=== PATIENT | female | born 1980 | race Caucasian/White ===

== ENCOUNTER → 2016-12-18 | Outpatient (CLI) | payer OTHER | LOC: KOH-I 13:36 | DX: R07.9 Chest pain, unspecified (principal); M54.5 Low back pain | CPT/HCPCS: 71020; 72050; 72070; 72110; 73590 ==

== ENCOUNTER → 2017-06-14 | Outpatient (CLI) | payer OTHER | LOC: EMI 11:11 | DX: M54.5 Low back pain (principal) | CPT/HCPCS: 72148 ==

== ENCOUNTER 2021-01-24 03:09 | Emergency (ER) | payer OTHER ==
[2021-01-24] MEDS ORDERED: ALBUTEROL2.5 MG/3 M INH (05:21)
[2021-01-24] MEDS ORDERED: PREDNISONE 20 M20 MG PO (05:21)
== END 2021-01-24 05:29 | disposition home or self-care (01) ==
LOC: ER1 03:09
DX: J40 Bronchitis, not specified as acute or chronic (principal); F17.200 Nicotine dependence, unspecified, uncomplicated; Z20.822 Contact with and (suspected) exposure to COVID-19; Z90.49 Acquired absence of other specified parts of digestive tract; Z79.899 Other long term (current) drug therapy
CPT/HCPCS: 0240U; 71045; 87081; 87880; 93005; 94664; 99284